=== PATIENT | female | born 1990 | race African-American/Black ===

== ENCOUNTER 2019-01-01 18:17 | Emergency (ER) | payer SELFPAY ==
[~2019-01-01] VITALS: Ht 154.9 cm; Wt 82.0 kg
[2019-01-01 20:14] VITALS: BP 119/67
== END 2019-01-01 20:14 | disposition home or self-care (01) ==
LOC: ER 18:17
DX: S69.92XA Unspecified injury of left wrist, hand and finger(s), initial encounter (principal); W01.0XXA Fall on same level from slipping, tripping and stumbling without subsequent striking against object, initial encounter; Y93.89 Activity, other specified; Y92.89 Other specified places as the place of occurrence of the external cause; Y99.8 Other external cause status
CPT/HCPCS: 73110; 73130; 81025; 99283